=== PATIENT | female | born 1985 | race Caucasian/White ===

== ENCOUNTER 2016-11-15 05:31 | Emergency (ER) | payer MEDICAID ==
[~2016-11-15 05:31] MED LIST: ALBUTEROL0.63 MG/3 IH; CEFDINIR300 MG PO; COLACE-DPS100 MG PO; CUBICIN500 MG IV; FEOSOL-DPS325 MG PO; MOTRIN-DPS800 MG PO; NIPPLECREAM TP; PERCOCET 5 DPS1 TAB PO; PRENATAL VITAM1 EAC1 PO; TYLENOL325 MG PO
--- NOTE | 2016-11-17 04:09 | ER ---
ADMIT: 11/15/2016 RM/LOC: [facility] MR#: [id number] [address] KENNY MONTELONGO [address] [place] [id number] Emergency Room Report SEX: F AGE: 31 : 1985 DATE: 11/15/2016 ADDENDUM: CHIEF COMPLAINT: Right shoulder pain. HISTORY OF PRESENT ILLNESS: The patient is a 31-year-old female, who comes in for evaluation of right shoulder pain. She states she was going down the steps today when she got to the bottom step and believes that she missed the last step, fell forward, landed on her right shoulder. This happened just prior to arrival and denies any other injuries at this time. She states that she has pain when she is sitting there, but it is worse when she tries to abduct her right arm. She denies any numbness, tingling, weakness in her right upper extremity. Denies any pain in the elbow or wrist. She has no neck pain. PAST MEDICAL HISTORY: Asthma. PAST SURGICAL HISTORY: Three C-sections. MEDICATIONS: See nurse's note. ALLERGIES: SEE NURSE'S NOTE. SOCIAL HISTORY: Patient works at a long term. PHYSICAL EXAMINATION: GENERAL: The patient has no distress. She is alert. EXTREMITIES: Her right shoulder shows that she has some tenderness near her AC joint. There is no swelling I can appreciate. There is no abrasion or ecchymosis. She does have pain when she tries to abduct her right arm. There is no obvious deformity seen and she has no tenderness for limited range of motion at her right elbow or wrist. She has a brisk radial pulse. Sensation ADMIT: 11/15/2016 RM/LOC: [facility] MR#: [id number] [address] KENNY MONTELONGO [address] [place] [id number] Emergency Room Report SEX: F AGE: 31 : 1985 is intact in the right arm. IMAGING: X-ray of the right shoulder reveals no acute abnormality. MEDICAL DECISION MAKING: Based on her exam and x-ray, I believe she likely has a contusion to her right shoulder. She is given today and tomorrow off work and is to rest and use ibuprofen. She is to follow up with her regular physician in the next week to week and a half if symptoms are not improving. DIAGNOSES: 1. Right shoulder pain. 2. Right shoulder contusion. Davon Andrews MD/ jamil JOB #: [id number] CC: Davon Andrews MD, Attending Physician Imelda Amaya MD, Family Physician
== END 2016-11-15 06:20 | disposition home or self-care (01) ==
LOC: ER 05:31
DX: S40.011A Contusion of right shoulder, initial encounter (principal); W10.9XXA Fall (on) (from) unspecified stairs and steps, initial encounter